=== PATIENT | male | born 1955 | race Caucasian/White ===

== ENCOUNTER → 2017-11-04 | Outpatient (CLI) | payer OTHER ==
[~2017-11-04] MED LIST: HYDUNK; LSNUNK; [UNRECOGNIZED DRUG - OTHER]
[2017-11-04 09:49] LABS: BLOOD UREA NITROGEN 15 mg/dl (7-18); CREATININE 1.04 mg/dl (0.60-1.40)
[2017-11-04 09:53] LABS: LUTEINIZING HORMONE 2.51 IU/L; PROLACTIN 5.76 ng/mL
[2017-11-04 09:54] LABS: FOLLICLE STIMULAT HORMONE 4.27 IU/L
== END | disposition home or self-care (01) ==
LOC: C.LAB1850 07:04
PROVIDERS: ATTEND Internal Medicine Endocrinology, Diabetes & Metabolism
DX: D44.4 Neoplasm of uncertain behavior of craniopharyngeal duct (principal); R53.83 Other fatigue; E03.9 Hypothyroidism, unspecified; R68.82 Decreased libido; E06.3 Autoimmune thyroiditis

== ENCOUNTER → 2017-11-11 | Outpatient (CLI) | payer OTHER ==
[~2017-11-11] MED LIST changes: +GADAVIST IV PRN
--- NOTE | 2017-11-11 13:46 | DIAGNOSTIC IMAGING REPORT ---
BRAIN COMBO FOR PITUITARY CLINICAL HISTORY: 62 years-old Male presenting with follow up craniopharyngioma. TECHNIQUE: Multisequence, multiplanar MR imaging of the brain was performed before and after the administration of intravenous contrast. IV contrast: 8 mL of Gadavist. COMPARISON: 07/11/2010, 01/02/2011, 12/27/2013. FINDINGS: Interval increase in size of the multilobular lesion in the suprasellar region. This contours/invades the sella and clivus with a well-defined margin between the mass and normal bone marrow, which represents an increase from prior exam. The mass measures 2.3 x 1.3 x 1.9 cm, demonstrates progressive enhancement, and restricted diffusion. The mass abuts less than 180 degrees of the circumference of the cavernous portions of the ICAs without naveen evidence of invasion. No displacements or mass effect on the optic chiasm. No normal pituitary gland is evident. Ventricles and sulci normal in size. Periventricular and subcortical white matter T2/FLAIR hyperintensity, nonspecific but likely indicative of chronic small vessel ischemic change. No midline shift. No restricted diffusion to suggest acute ischemia. No hemorrhage. No extra-axial fluid collection. T2 skull base flow voids preserved without evidence of gross narrowing of the cavernous segments of the carotid arteries. Mild mucosal thickening in the left maxillary sinus and hypoplastic left sphenoid sinus. Complete opacification of the right sphenoid sinus, which is unchanged from prior. IMPRESSION: 1. 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 The mass measures 2.3 x 1.3 x 1.9 cm. Abutment but not encasement of the cavernous portions of the ICAs. 2. Postsurgical changes of the sella/sphenoid sinuses. The report will be called/faxed according to standard departmental protocol. Electronically signed by: Kraig Mock M.D. 11/11/2017 1:45 PM Dictated Date/Time: 11/11/2017 1:33 PM
== END | disposition home or self-care (01) ==
LOC: C.MRI 10:38
PROVIDERS: ATTEND Internal Medicine Endocrinology, Diabetes & Metabolism
DX: D44.4 Neoplasm of uncertain behavior of craniopharyngeal duct (principal); Z98.890 Other specified postprocedural states

== ENCOUNTER → 2018-01-22 | Outpatient (CLI) | payer OTHER ==
[~2018-01-22] MED LIST changes: -GADAVIST IV PRN
[2018-01-22 10:57] LABS: ISTAT CREATININE 1.2 mg/dl (0.6-1.3); ISTAT POTASSIUM 3.3 mEq/L (3.3-5.0); ISTAT SODIUM 143 mEq/L (135-144)
[2018-01-25 15:15] LABS: INSULIN LIKE GROWTH FACTOR-I 114 ng/mL (41-279)
== END | disposition home or self-care (01) ==
LOC: C.LAB 07:42
PROVIDERS: ATTEND Internal Medicine Endocrinology, Diabetes & Metabolism
DX: D49.7 Neoplasm of unspecified behavior of endocrine glands and other parts of nervous system (principal)